=== PATIENT | male | born 1985 | race Caucasian/White ===

== ENCOUNTER 2024-10-21 13:40 | Emergency (ER) | payer BC ==
[~2024-10-21] VITALS: Ht 154.9 cm; Wt 90.7 kg
[2024-10-21 13:44] VITALS: BP 140/91; TEMP 98.3; O2SAT 98
[2024-10-21] MEDS ORDERED: ACET325C7 PO (14:31)
[2024-10-21] MEDS ORDERED: IBUP-1953 PO (14:31)
== END 2024-10-21 14:37 | disposition home or self-care (01) ==
LOC: ER 13:45
DX: R68.84 Jaw pain (principal); K08.89 Other specified disorders of teeth and supporting structures